=== PATIENT | male | born 1955 | race Caucasian/White ===

== ENCOUNTER → 2016-11-11 | Outpatient (CLI) | payer BC ==
[2016-11-11 18:07] LABS: BLOOD UREA NITROGEN 14 mg/dl (7-18); BUN/CREATININE RATIO 16.7 (10-20); CALCIUM 8.8 mg/dl (8.5-10.1); CARBON DIOXIDE 29 mmol/L (21-32); CHLORIDE 105 mmol/L (98-107); CREATININE 0.85 mg/dl (0.60-1.40); GLUCOSE 119 mg/dl (70-99); POTASSIUM 4.2 mmol/L (3.5-5.1); SODIUM 140 mmol/L (136-145)
== END | disposition home or self-care (01) ==
LOC: C.LABMFLN 16:19
PROVIDERS: ATTEND Family Medicine
DX: I10 Essential (primary) hypertension (principal)

== ENCOUNTER 2018-09-06 05:20 | Inpatient (IN) ==
--- NOTE | 2018-08-24 09:23 | Anesthesiology Consultation ---
Date of Service August 24, 2018 Assessment & Plan (1) Encounter for pre-operative examination: Plan: CHECK BSG AM DOS Chart Review Chart Review: Acceptable Risk for Surgery and Patient seen in Pre Admission Testing Teaching & Discussion Instructed NPO after midnight before surgery, except medications with 15 cc of water. Medication instructions provided according to the PAT guidelines. History Surgery Operation Date: 09/06/18 07:35 Proposed Procedures p Robotic Laparoscopic Prostatectomy - Aurelio Caban MD Height/Weight Height: 5 ft 7 in Weight: 92.4 kg Allergies Allergy/AdvReac Type Severity Reaction Status Date / Time bacitracin Allergy Intermediate Verified 08/21/18 15:03 [From Neosporin ([id number])] neomycin Allergy Unknown Verified 08/21/18 15:03 [From Neosporin ([id number])] polymyxin B Allergy Unknown Verified 08/21/18 15:03 [From Neosporin ([id number])] Medications Home Medications Medication Instructions Recorded Confirmed Last Taken lisinopril 20 1 tab PO QAM 08/15/18 08/21/18 Unknown mg-hydrochlorothiazide 12.5 mg tablet metformin 500 mg tablet 500 mg PO QPM 08/15/18 08/21/18 Unknown omeprazole 20 mg tablet,delayed 20 mg PO DAILY 08/15/18 08/21/18 Unknown release Past Medical History Medical History Allergic rhinitis (Acute) Asthma (Acute) NO INHALERS. HAS ESSENTIALLY RESOLVED SINCE SMOKING CESSATION. Benign essential hypertension (Acute) Elevated PSA, greater than or equal to 20 ng/ml (Acute) Gastro-esophageal reflux (Acute) Hypercholesterolemia (Acute) Prostate cancer (Acute) Testicular hypofunction (Acute) Diabetes mellitus, type 2 Obesity Past Family History Family History Father Diabetes 1.5, managed as type 1 diverticulitis Mother Cancer of kidney FH: kidney cancer Brother Diabetes 1.5, managed as type 1 Grandfather (Paternal) , great grandfather also had diabetes Lymph node cancer Past Surgical History Surgical History History of tonsillectomy and adenoidectomy (Resolved) H/O oral surgery Two implants placed History of colonoscopy History of tonsillectomy and adenoidectomy Past Anesthesia History No Hx of Anesthesia Complications and No Family Hx of Anesthesia Complications History of PONV No Motion Sickness Screening History of Motion Sickness: No Social History Smoking Status: Former smoker tobacco type: cigarettes Do You Dip or Chew Tobacco: Yes (1 CAN/2 DAYS (ADVISED)) Smoking End Date: JANUARY 2016 Hx Alcohol Use: Yes Alcohol type: beer alcohol intake frequency: 0-2 drinks per day (2 12 oz bottles of beer per evening) Hx Substance Use: No substance use type: does not use Exercise / Class Metabolic Activity II 4-5 Yardwork/Stairs/Walk up hill (no CP or SOB with 1 FOS) Review of Systems Pt denies any recent chest pain, shortness of breath, palpitations, cough, fever or URI. +chronic post nasal drip/reflexive cough Physical Exam Vital Signs BP: 115/83 P: 95bpm SPO2: 95% RA T: 97.9 F R: 16 ENMT Mouth: + dental restorations (2 implants, molars, bottom L and R); no chipped teeth and no loose teeth Thyromental Distance: < 3.5 Finger Breadths (3) Mallampati Class: II Neck normal visual inspection and + short neck; neck extension not limited Respiratory normal respiratory effort Auscultation: lungs clear to auscultation bilaterally Cardiovascular Rate/Rhythm: regular rate and regular rhythm Heart Sounds: no murmur Vessels: no carotid bruit Extremities: no edema Testing Electrocardiogram Date: 08/24/18 Findings: + NSR @ (87) Chest X-Ray Date: 08/24/18 1. No acute process within the chest. 2. 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 Laboratory Results 08/24/18 09:37 08/24/18 09:37 Blood Type O Positive 08/24/18 09:37 Antibody Screen NEGATIVE 08/24/18 09:37 Urine Color Yellow 08/24/18 09:37 Urine Appearance Clear (Clear) 08/24/18 09:37 Urine pH 5.5 (4.5-7.5) 08/24/18 09:37 Ur Specific [place] 1.014 (1.000-1.030) 08/24/18 09:37 Urine Protein Negative (Negative) 08/24/18 09:37 Urine Glucose (UA) Negative (Negative) 08/24/18 09:37 Urine Ketones Negative (Negative) 08/24/18 09:37 Urine Nitrite Negative (Negative) 08/24/18 09:37 Ur Leukocyte Esterase Negative (Negative) 08/24/18 09:37 08/24/18 09:37 Urine Culture - Final Urine,Clean Catch No growth - less than 1,000 colonies/mL.
--- NOTE | 2018-08-24 09:32 | PAT Medication Instructions ---
Medication Instructions Date of Service August 24, 2018 Home Medications lisinopril 20mg-hydrochlorothiazide 12.5 mg 1 tab PO QAM metformin 500 mg tablet 500 mg PO QPM omeprazole 20 mg tablet 20 mg PO QAM DO NOT take the morning of surgery lisinopril 20mg-hydrochlorothiazide 12.5 mg 1 tab PO QAM Take morning of surgery With a small sip of water, OTHERWISE NOTHING TO EAT OR DRINK AFTER MIDNIGHT: omeprazole 20 mg tablet 20 mg PO QAM Take evening before surgery metformin 500 mg tablet 500 mg PO QPM Other Notes If you have any questions please call us at [phone] or [phone] or [phone] or [phone]
--- NOTE | 2018-08-24 09:59 | XRay Report ---
XR chest Pre-admission PA/Lat HISTORY: Preop. COMPARISON: Abdomen and pelvis CT 07/25/2018. FINDINGS: Lobular right retrocardiac density likely corresponds to the paraesophageal cyst seen on th e prior study. No pneumothorax no pleural effusions. Lobular density overlying the right posterior ni nth rib favors a healing/healed fracture. The lungs are otherwise clear. The heart is normal in size. IMPRESSION: 1. No acute process within the chest. 2. 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 Electronically signed by: Aaron Yarbrough M.D. 08/24/2018 9:58 AM
[2018-08-24 10:31] LABS: Basophils # (auto) 0.04 K/uL (0-0.2); Basophils % (auto) 0.4 %; Eosinophils # (auto) 0.53 K/uL (0-0.5); Eosinophils % (auto) 5.3 %; Hematocrit (blood only) 45.4 % (42-52); Hemoglobin 14.9 g/dL (14.0-18.0); Immature Granulocytes # (auto) 0.02 K/uL (0.00-0.02); Immature Granulocytes % (auto) 0.2 %; Lymphocytes # (auto) 2.37 K/uL (1.2-3.4); Lymphocytes % (auto) 23.7 %; Mean Corpuscular Hgb Conc 32.8 g/dL (32-36); Mean Corpuscular Volume 91.2 fL (80-100); Mean Platelet Volume 9.3 fL (7.4-10.4); Monocytes # (auto) 1.26 K/uL (0.11-0.59); Monocytes % (auto) 12.6 %; Neutrophils # (auto) 5.77 K/uL (1.4-6.5); Neutrophils % (auto) 57.8 %; Platelet Count 364 K/uL (130-400); RDW Coefficient of Variation 13.1 % (11.5-14.5); RDW Standard Deviation 43.2 fL (36.4-46.3); Red Blood Count 4.98 M/uL (4.7-6.1); White Blood Count 9.99 K/uL (4.8-10.8)
[2018-08-24 10:34] LABS: Appearance Urine Clear (Clear); Bilirubin Urine Negative (Negative); Color Urine Yellow; Glucose Urine UA Negative (Negative); Ketones Urine Negative (Negative); Leukocyte Esterase Urine Negative (Negative); Nitrite Urine Negative (Negative); Protein Urine Negative (Negative); Specific Gravity Urine 1.014 (1.000-1.030); Urobilinogen Urine Negative (Negative); pH Urine 5.5 (4.5-7.5)
[2018-08-24 10:40] LABS: BUN Creatinine Ratio 18.1 (10-20); Calcium 9.3 mg/dl (8.5-10.1); Creatinine Clr Calc Pharmacy 96.7 ml/min; Est GFR (African American) 108.2; Est GFR (Non-African American) 93.4; Potassium 4.3 mmol/L (3.5-5.1)
[2018-09-06] MEDS ORDERED: HEPARIN IV BOLUS 5,000 UNITS in SYRINGE 0 ML IV ONE (06:00)
[2018-09-06] MEDS ORDERED: LR 15ML/HR IV SCH ×2 (06:00)
[2018-09-06] MEDS ORDERED: LR 500ML BOLUS, THEN 15ML/HR IV SCH (06:00)
[2018-09-06] MEDS ORDERED: LR 500ML BOLUS IV SCH (06:00)
[2018-09-06] MEDS ORDERED: HEPARIN SOD 5,000 UNIT/0.5 ML VIAL SQ SCH (06:00)
[2018-09-06] MEDS ORDERED: CEFAZOLIN 2000MG 2,000 MG/15 ML SYR IV SCH (06:00)
[2018-09-06] MEDS ORDERED: ACETAMINOPHEN 1,000 MG/100 ML VIAL IV SCH (06:00)
[2018-09-06] MEDS ORDERED: BUPIVACAINE 0.5 % 5 MG/1 ML MPF 30ML VIAL ONE (07:01)
--- NOTE | 2018-09-06 07:02 | History & Physical Bridge Note ---
Date of Service September 06, 2018 History & Physical Bridge Note I have examined the patient, reviewed the History & Physical and in the interval since the performance of the History & Physical I have noted the following changes of clinical significance: no changes noted
[2018-09-06] MEDS ORDERED: LIDOCAINE HCL 2% 2 ML VIAL/AMP(20MG/ML) INFIL ONE (07:10)
[2018-09-06] MEDS ORDERED: PROPOFOL IV EMULSION 10 MG/ML 20 ML VIAL IV ONE (07:10)
[2018-09-06] MEDS ORDERED: LARYING-O-JET KIT (LTA) ONE (07:10)
[2018-09-06] MEDS ORDERED: MIDAZOLAM HCL 1 MG/ML 2ML VIAL ONE (07:11)
[2018-09-06] MEDS ORDERED: fentaNYL citrate 100 MCG/2 ML VIAL ONE ×2 (07:11→12:16)
[2018-09-06] MEDS ORDERED: ROCURONIUM BROMIDE 10 MG/ML 5 ML VIAL ONE ×6 (07:12→11:31)
[2018-09-06] MEDS ORDERED: ONDANSETRON INJ 2 MG/ML 2 ML VIAL ONE ×2 (07:12→12:38)
[2018-09-06] MEDS ORDERED: DEXAMETHASONE SOD INJ 4 MG/ML VIAL ONE ×2 (07:12→09:48)
[2018-09-06] MEDS ORDERED: KETOROLAC 30 MG/ML VIAL IV PRN (07:40)
[2018-09-06] MEDS ORDERED: DEXAMETHASONE SOD INJ 4 MG/ML VIAL IV PRN (07:40)
[2018-09-06] MEDS ORDERED: ATROPINE SULFATE 0.1 MG/ML 10ML SYR IV PRN (07:40)
[2018-09-06] MEDS ORDERED: ePHEDrine sulfate 50 MG/ML AMP IV PRN (07:40)
[2018-09-06] MEDS ORDERED: ONDANSETRON INJ 2 MG/ML 2 ML VIAL IV PRN ×2 (07:40→15:08)
[2018-09-06] MEDS ORDERED: HYDROmorphone INJ 2 MG/ML SYR/VIAL IV PRN (07:40)
[2018-09-06] MEDS ORDERED: HYDROmorphone INJ 2 MG/ML SYR/VIAL ONE (08:58)
[2018-09-06] MEDS ORDERED: METHYLENE BLUE 0.5% 10 ML VIAL ONE ×2 (10:20)
[2018-09-06] MEDS ORDERED: NEOSTIGMINE METHYLSULFATE 5 MG/5 ML SYR ONE (10:35)
[2018-09-06] MEDS ORDERED: GLYCOPYRROLATE 0.2 MG/ML VIAL ONE (10:35)
[2018-09-06] MEDS ORDERED: SURGICEL ABSORB HEMOSTAT 2IN X 14IN TOP ONE (10:38)
[2018-09-06] MEDS ORDERED: FLOSEAL HEMOSTATIC MATRIX 10ML TOP ONE (10:38)
--- NOTE | 2018-09-06 13:32 | Operative Report ---
Post Operative Report Pre & Post Diagnosis Operation Date: 09/06/18 07:40 Pre-Op Diagnosis: Prostate Cancer Post-Op Diagnosis: Prostate Cancer Procedure Operation Date: 09/06/18 07:40 Actual Procedures p Robotic Assisted Laparoscopic Prostatectomy, Bilateral Pelvic Lymph Node Dissection and Suprapubic Catheter Tube Placement(Not Applicable) - Aurelio Caban MD Surgeon Aurelio Caban MD [employer] Jaden Linda CRNP Estimated Blood Loss 100 Findings Consistent with Post-Op Diagnosis Specimens Prostate + SVs, periprostatic fat, median lobe, L and R pelvic nodes Description of Procedure RALRP, BPLND, SPT placement I attest to the content of the Intraoperative Record and any orders documented therein. Any exceptions are noted below.
[2018-09-06] MEDS: fentaNYL citrate 100 MCG/2 ML VIAL IV PRN ×2 (13:50→13:55)
[2018-09-06 14:09] LABS: Basophils # (auto) 0.02 K/uL (0-0.2); Basophils % (auto) 0.1 %; Eosinophils # (auto) 0.02 K/uL (0-0.5); Eosinophils % (auto) 0.1 %; Hematocrit (blood only) 43.7 % (42-52); Hemoglobin 14.5 g/dL (14.0-18.0); Immature Granulocytes # (auto) 0.04 K/uL (0.00-0.02); Immature Granulocytes % (auto) 0.3 %; Lymphocytes # (auto) 0.79 K/uL (1.2-3.4); Lymphocytes % (auto) 5.3 %; Mean Corpuscular Volume 91.8 fL (80-100); Mean Platelet Volume 8.8 fL (7.4-10.4); Monocytes # (auto) 0.55 K/uL (0.11-0.59); Monocytes % (auto) 3.7 %; Neutrophils # (auto) 13.47 K/uL (1.4-6.5); Neutrophils % (auto) 90.5 %; Platelet Count 350 K/uL (130-400); RDW Coefficient of Variation 12.9 % (11.5-14.5); RDW Standard Deviation 43.3 fL (36.4-46.3); Red Blood Count 4.76 M/uL (4.7-6.1); White Blood Count 14.89 K/uL (4.8-10.8)
[2018-09-06 14:13] LABS: Mean Corpuscular Hgb Conc 33.2 g/dL (32-36)
[2018-09-06 14:36] LABS: Est GFR (African American) 84.1; Potassium 3.8 mmol/L (3.5-5.1)
[2018-09-06 14:37] LABS: BUN Creatinine Ratio 14.9 (10-20); Calcium 8.3 mg/dl (8.5-10.1); Creatinine Clr Calc Pharmacy 77.2 ml/min; Est GFR (Non-African American) 72.6
--- NOTE | 2018-09-06 14:57 | Anesthesiology Progress Note ---
Date of Service September 06, 2018 Anesthesia Post Procedure Vital Signs Vital Signs: Temp Pulse Pulse Resp BP BP Pulse Ox 09/06/18 14:45 107 H 16 113/82 93 09/06/18 14:35 105 H 16 118/86 93 09/06/18 14:25 36.3 C L 101 H 13 117/84 96 09/06/18 14:15 105 H 17 128/92 94 09/06/18 14:05 106 H 20 129/93 98 09/06/18 13:55 110 H 14 114/66 100 09/06/18 13:46 36.0 C L 113 H 13 103/80 100 09/06/18 05:49 36.8 C 103 H 20 125/96 95 Pain Intensity Abdomen: Pain Intensity: 5 Notes Mental Status: alert / awake / arousable and participated in evaluation Patient Amnestic to Procedure: Yes Nausea / Vomiting: adequately controlled Pain: adequately controlled Airway Patency, RR, SpO2: stable & adequate BP & HR: stable & adequate Hydration State: stable & adequate Anesthetic Complications: no major complications apparent
[2018-09-06] MEDS ORDERED: OXYCODONE HCL IR 5 MG TAB (IMMEDIATE RELEASE) PO PRN ×2 (15:08)
[2018-09-06] MEDS ORDERED: MoRPHine SULFATE 4 MG/ML 1 ML CARP\\VIAL IV PRN (15:08)
[2018-09-06] MEDS ORDERED: PHARMACY GLYCEMIC MGMT CONSULT PRN (15:19)
[2018-09-06] MEDS ORDERED: GLUCOSE 10 TABS/TUBE PO PRN (15:30)
[2018-09-06] MEDS ORDERED: DEXTROSE 50% 50 ML SYRINGE IV PRN (15:30)
[2018-09-06] MEDS ORDERED: GLUCAGON FOR INJ 1 MG VIAL SQ PRN (15:30)
[2018-09-06] MEDS ORDERED: GLUCOSE 40% GEL 15 GM TUBE PO PRN (15:30)
[2018-09-06] MEDS ORDERED: CARBOHYDRATES FOR HYPOGLYCEMIA PO PRN (15:30)
[2018-09-06] MEDS ORDERED: INSULIN GLARGINE SOLOSTAR 100 UNITS/ML 3 ML PEN SC ONE ×2 (15:45→21:00)
--- NOTE | 2018-09-06 15:46 | Pharmacy Report ---
Pharmacy Glycemic Short Note 2 - Date of Service September 06, 2018 - Glycemic Short BSG Results (Last 24 hours): 09/06/18 09/06/18 09/06/18 05:45 13:50 13:59 Glucose 209 H POC Glucose 134 H 179 H OUTPATIENT ANTIDIABETIC REGIMEN: * metformin 500 mg PO qPM * A1c 6.9 % 05/11/18 ASSESSMENT: * Mr. Delaney is a 62 yr old T2DM male s/p p Laparoscopic Prostatectomy, Bilateral Pelvic Lymph Node Dissection and Suprapubic Catheter Tube placement. He is well controlled on metformin as an outpatient based on recent A1c of 6.9% . Updated A1c ordered for tomorrow. * He was given oral and intravenous dexamethasone in the OR, therefore aggressive bolus insulin will likely be needed for the next 24 hours. * I have ordered a stat dose of Lantus 18 units for current BSG > 200 mg/dL and will add a Lantus scale at HS. I dosed Lantus on the conservative side since patient is ordered a clear liquid diet. * Novolog parameters will be based on weight/stress 3 for POD #0 PLAN FOR INPATIENT GLYCEMIC CONTROL: * Hold outpatient oral diabetes medications * Basal insulin * Lantus 18 units SQ now, then per scale at HS: * 0 units for BSG < 140 mg/dL * 8 units for BSG 140-200 mg/dL * 14 units for BSG > 200 mg/dL * Bolus insulin * NovoLog per scale ACHS or Q6hrs while NPO * Goal Range: Low 110 mg/dL - High 140 mg/dL * Correction Factor: 15 mg/dL/unit * Nutritional / Prandial insulin per carb ratio of 1 unit per 6 grams CHO consumed * Overnight checks at 00 and 04 for POD #0 thank you
[2018-09-06 17:02] LABS: Prothrombin Time 10.2 Seconds (9.0-12.0)
[2018-09-06] MEDS: CEFAZOLIN 2000MG 2,000 MG/15 ML SYR IV SCH ×2 (17:06→23:55)
[2018-09-06] MEDS: FAMOTIDINE 20 MG in SYRINGE 3 ML IV SCH (17:13)
[2018-09-06] MEDS: ACETAMINOPHEN 1,000 MG/100 ML VIAL IV SCH ×2 (17:22→23:58)
--- NOTE | 2018-09-06 17:43 | Progress Note ---
Date of Service September 06, 2018 Patient seen in PM rounds. Taking clears, somnolent. C/o rodriguez irritation. NAD S1 S2 Good respiratory excursion Inc c/d/i, nondistended, Nt Labs below. A/P 62 yo male postop RALRP, BPLND, SPT placement Intraop findings reviewed. Rx for oxybutynin for bladder spasms. Clears, OOBTC as maryan Laboratory Results - last 24 hr 09/06/18 09/06/18 09/06/18 05:45 13:50 13:59 WBC 14.89 H RBC 4.76 Hgb 14.5 Hct 43.7 MCV 91.8 MCH 30.5 MCHC 33.2 RDW Std Deviation 43.3 RDW Coeff of Natalia 12.9 Plt Count 350 MPV 8.8 Immature Gran % (Auto) 0.3 Neut % (Auto) 90.5 Lymph % (Auto) 5.3 [place] % (Auto) 3.7 Eos % (Auto) 0.1 Baso % (Auto) 0.1 Immature Gran # (Auto) 0.04 H Neut # (Auto) 13.47 H Lymph # (Auto) 0.79 L [place] # (Auto) 0.55 Eos # (Auto) 0.02 Baso # (Auto) 0.02 PT INR Sodium Potassium Chloride Carbon Dioxide Anion Gap BUN Creatinine Est Cr Clr Drug Dosing Est GFR ( Amer) Est GFR (Non-Af Amer) BUN/Creatinine Ratio Glucose POC Glucose 134 H 179 H Calcium 09/06/18 09/06/18 13:59 16:36 WBC RBC Hgb Hct MCV MCH MCHC RDW Std Deviation RDW Coeff of Natalia Plt Count MPV Immature Gran % (Auto) Neut % (Auto) Lymph % (Auto) [place] % (Auto) Eos % (Auto) Baso % (Auto) Immature Gran # (Auto) Neut # (Auto) Lymph # (Auto) [place] # (Auto) Eos # (Auto) Baso # (Auto) PT 10.2 INR 1.0 Sodium 137 Potassium 3.8 Chloride 103 Carbon Dioxide 27 Anion Gap 8.0 BUN 16 Creatinine 1.10 Est Cr Clr Drug Dosing 77.2 Est GFR ( Amer) 84.1 Est GFR (Non-Af Amer) 72.6 BUN/Creatinine Ratio 14.9 Glucose 209 H POC Glucose Calcium 8.3 L Physical Exam 2 Vital Signs (Past 24 Hours): Last Vital Signs Temp 37.2 C 09/06/18 17:00 Pulse 108 H 09/06/18 17:00 Resp 18 09/06/18 17:00 BP 113/80 09/06/18 17:00 Pulse Ox 96 09/06/18 17:00
[2018-09-06] MEDS: LACTATED RINGER'S 1,000 ML IV SCH (18:16)
[2018-09-06] MEDS: OXYBUTYNIN CHLORIDE 5 MG TAB PO PRN (18:31)
[2018-09-06] MEDS: INSULIN ASPART 100 UNITS/ML 3 ML PEN SC SCH ×2 (18:36→22:01)
--- NOTE | 2018-09-06 19:33 | Operative Report ---
DATE OF OPERATION: 09/06/2018 PREOPERATIVE DIAGNOSIS: Mchenry 3+4 adenocarcinoma of the prostate with a preoperative PSA of 51. POSTOPERATIVE DIAGNOSIS: Jaycee 3+4 adenocarcinoma of the prostate with a preoperative PSA of 51. . PROCEDURE: Robotic-assisted laparoscopic radical retropubic prostatectomy, right-sided nerve sparing and left-sided partial nerve sparing dissection, bilateral pelvic lymph node dissection and suprapubic catheter placement. SURGEON: Aurelio Caban MD. COUNTER HELPER: JEFFERSON Og and JEFFERSON Schilling. ANESTHESIA: General anesthesia with endotracheal intubation plus local at port sites. ESTIMATED BLOOD LOSS: 100 mL INTRAVENOUS FLUIDS: 1900 mL of crystalloid. SPECIMENS SENT TO PATHOLOGY: Periprosthetic fat, median lobe, left pelvic lymph nodes right pelvic lymph nodes, prostate and seminal vesicles. DRAINS LEFT IN PLACE: Include a #10 INEZ drain in left lower quadrant, #18-Swedish silicone Cline catheter per urethra with 10 mL of sterile water in the balloon and a #16-Swedish suprapubic tube with 10 mL of sterile water in the balloon. COMPLICATIONS: None. FINDINGS: Watertight anastomosis, periprostatic inflammation, and redundant seminal vesicles. BRIEF HISTORY: Mr. Delaney is a pleasant 62-year-old male who is status post prostate biopsy for an elevated PSA of 51. The staging studies were negative for obvious metastatic disease. He is found to have Mchenry 3+4 elements all along the left hand of his prostate gland. After discussion of risks and benefits of various forms of management, he has decided upon a robotic prostatectomy to manage his disease. Please see H and P for further details. The patient understands that there is a discrepancy between his PSA value, imaging studies, and biopsy pathology. Hopefully, a final pathology report after surgery and tita PSA will help elucidate this problem. Intravenous Tylenol is provided for antibiotic coverage and SCDs used for DVT prophylaxis. Intravenous cephalosporins provided for antibiotic coverage. DESCRIPTION OF PROCEDURE: The patient was properly identified and brought into the operative suite after identification of appropriate consent on the chart. General anesthesia with endotracheal intubation was initiated. The patient was prepped and draped in standard fashion for this procedure. part time receptionist-out procedure was followed. A Cline catheter was placed with some resistance and drainage of clear yellow urine. All port sites were anesthetized with local prior to incision. A 12-mm supraumbilical incision was made and using a 12-mm 0 degree laparoscope and visual obturator, abdomen was entered under direct visualization. Abdomen was insufflated to 15 mmHg and noted to be free of any injuries on placement of the ports. Ports were placed for a 4th arm robotic template including 2 left-sided 7-mm robotic ports, 1 right-sided 7-mm robotic port and a 5 and 12 mm transport assistant port. The patient was placed in Trendelenburg and robot was brought in and docked. Some copious colonic adhesions were freed on the left pelvis and some small bowel adhesions of the right side were also noted and partially freed. The patient was noted to have a large indirect hernia on the right hand side, which was circumscribed. Inguinal musculature weakness on the right was also noted. A hook cautery was used to drop the bladder down to the level of the pubic bone. The patient was noted to have a fairly copious amount of intra-abdominal fat. Prostate was defatted and the tissue was sent for pathologic analysis. Endopelvic fascia was sharply entered on both sides and dissected free down to the level of the apex of the prostate. Dorsal venous complex was skeletonized and then controlled using 0 Vicryl suture on a CT1 needle. Attention was then turned to a partial nerve sparing dissection, which was commenced on the right hand side, which was free of pathology biopsy. A 30-degree down lens was placed and the fourth arm was used to place the bladder neck on traction. This was dissected down to the level of the catheter and on entering the bladder. The catheter was delivered through the incision and used for anterior traction on the bladder and prostate. Bladder was inspected and the patient was noted to have a pedunculated median lobe element present within the bladder. A plane of dissection of the posterior bladder wall dissection was altered to include the median lobe. Unfortunately, due to its relatively pedunculated nature, this was amputated with manipulation. This was sent for separate pathologic analysis. After this was complete and using the lateral aspects of the dissection to assist in identification of appropriate tissue planes, the bladder was able to be dropped in the midline down to the level of the vas deferens and seminal vesicles in the midline. These were noted to be dilated and somewhat inflammatory in terms of their anatomy. Weck clips were used to control the prostatic pedicles on both sides and cold scissors were used to divide the right-sided pedicle. Once the vasculature had been bypassed, the meticulous nerve sparing dissection was carried out on the right hand side up to the level of the apex of the prostate. On the left hand side, a wider dissection plane was taken with the use of a pinpoint Bovie cautery where necessary. The remaining attachments to the vas deferens and seminal vesicles were freed in the midline and the rectum was dropped down to the level of the apex of the prostate. No evidence of any rectal injury was appreciated throughout the case. Attention was then turned to the dorsal venous complex, which was divided using hot scissors. Urethra was skeletonized and then divided. Rectourethralis fibers remaining apical prosthetic attachments were divided and the prostate was delivered up into the abdomen, where it was placed within an EndoCatch bag for retrieval at the end of the case. Inspection was turned to the pelvis where excellent hemostasis was appreciated. Rectum was insufflated under saline irrigation with no evidence of any rectal injury. The patient's bladder neck was inspected and noted to be thickened, likely due to the patient's median lobe element. Although the patient's bladder neck was somewhat irregular on initial dissection its confines were able to be well defined and ureteral orifices were appreciated to be well removed from the area of dissection. No bladder neck reconstruction was felt to be necessary at this time. Attention was then turned to the obturator pelvic lymph node dissection, which was carried out on both sides. The external iliac vein, pelvic sidewall and obturator nerve were used as the landmarks for dissection. Weck clips and monopolar cautery were used to control prominent lymphatic vessels and small blood vessels as needed. Care was taken to avoid any injury to the nerve for the blood vessels, which were noted to be intact both sides at the end of the case with excellent hemostasis. The left-sided pelvic lymph node packet was marked using a Weck clip and these were placed within a second EndoCatch bag for retrieval at the end of the case. FloSeal tissue sealant was placed over the prostatic bed for additional hemostasis. A Cline catheter was then placed per urethra using a double-armed V-Loc suture, a circumferential running anastomosis was performed. Care was taken to avoid any deep suture throws in the vicinity of the ureteral orifices due to the previously noted median lobe element. After this was complete, the Cline catheter was visualized entering the bladder and 10 mL of sterile water were placed within the balloon. This was tested to greater than 180 mL of sterile irrigant with a watertight anastomosis being noted. Attention was then turned to placement of the suprapubic tube for additional postoperative comfort. A small suprapubic incision was made and a transdermal suprapubic needle passage was directly visualized entering the bladder. Unfortunately, there is some traction of the bladder. A small tear in the anterior bladder neck was appreciated. This was noted and identified. It was easily able to be oversewn and reapproximated using a separate V-Loc suture. Anastomosis was again tested and noted to be watertight in excellent condition. I was therefore felt to be safe to proceed with the placement of the suprapubic tube as planned. This was able to be placed without difficulties or complications. Ten mL of sterile water were placed within a #16-Swedish silicone Cline catheter which was passed via the suprapubic catheter tract. These were able to be irrigated with isovolumic return from the other catheter. Fourth arm was removed and #10 INEZ drain was brought in via the fourth arm port. This was placed within the pelvis while avoiding placing it directly over the anastomosis. Robotic instruments were removed and robot was dedocked. Strings to the EndoCatch bag were brought up through the supraumbilical incision, which was then enlarged sufficiently to allow for easy removal of the specimen bags. Drains including the a INEZ drain and suprapubic tube were secured in place using 2-0 silk suture. The fascia was closed at the level of the superior midline incision using an 0 Vicryl suture on a UR-5 needle. A 3-0 Vicryl was used at the level of the subcutaneous tissues. 4-0 Monocryl and Dermabond were used for skin incision closure. Excess carbon dioxide gas was removed from the abdomen prior to completion of closures. Dermabond dressings were placed and anesthesia was reversed. The patient was transferred to the recovery room in stable condition. FOLLOWUP CARE: The patient will be admitted to the floor for standard postoperative management. Assistants were present throughout the case for instrument passage, management of the camera, retraction of tissue and anatomy, passage of suture and bagging of specimens, and general patient safety. I attest to the content of the Intraoperative Record and any orders documented therein. Any exceptions are noted below. DIANE
[2018-09-06] MEDS: HEPARIN SOD 5,000 UNIT/0.5 ML VIAL SQ SCH (20:05)
[2018-09-06] MEDS: DOCUSATE SODIUM 100 MG CAP PO SCH (20:05)
[2018-09-07] MEDS: INSULIN ASPART 100 UNITS/ML 3 ML PEN SC SCH ×4 (00:05→13:26)
[2018-09-07] MEDS: OXYBUTYNIN CHLORIDE 5 MG TAB PO PRN (05:11)
[2018-09-07] MEDS: FAMOTIDINE 20 MG in SYRINGE 3 ML IV SCH (05:41)
[2018-09-07] MEDS: LACTATED RINGER'S 1,000 ML IV SCH (07:04)
[2018-09-07 07:24] LABS: Basophils # (auto) 0.01 K/uL (0-0.2); Basophils % (auto) 0.1 %; Eosinophils # (auto) 0.02 K/uL (0-0.5); Eosinophils % (auto) 0.1 %; Hemoglobin 13.3 g/dL (14.0-18.0); Immature Granulocytes # (auto) 0.04 K/uL (0.00-0.02); Immature Granulocytes % (auto) 0.2 %; Lymphocytes % (auto) 11.9 %; Mean Corpuscular Hgb Conc 32.4 g/dL (32-36); Mean Corpuscular Volume 92.3 fL (80-100); Monocytes # (auto) 2.14 K/uL (0.11-0.59); Monocytes % (auto) 13.4 %; Neutrophils # (auto) 11.91 K/uL (1.4-6.5); Neutrophils % (auto) 74.3 %; Platelet Count 366 K/uL (130-400); RDW Coefficient of Variation 13.2 % (11.5-14.5); RDW Standard Deviation 44.7 fL (36.4-46.3); Red Blood Count 4.44 M/uL (4.7-6.1); White Blood Count 16.02 K/uL (4.8-10.8)
[2018-09-07] MEDS: ACETAMINOPHEN 1,000 MG/100 ML VIAL IV SCH ×2 (07:42→15:43)
[2018-09-07 07:50] LABS: BUN Creatinine Ratio 15.3 (10-20); Calcium 8.3 mg/dl (8.5-10.1); Est GFR (African American) 109.8; Est GFR (Non-African American) 94.7; Potassium 3.8 mmol/L (3.5-5.1)
[2018-09-07] MEDS: CEFAZOLIN 2000MG 2,000 MG/15 ML SYR IV SCH (08:04)
--- NOTE | 2018-09-07 08:23 | Anesthesiology Progress Note ---
Date of Service September 07, 2018 Anesthesia Post Procedure Vital Signs Vital Signs: Temp Pulse Pulse Pulse Pulse Resp BP 09/07/18 07:15 36.8 C 95 H 17 118/75 09/07/18 03:39 37 C 102 H 18 122/77 09/06/18 23:44 37.3 C 108 H 20 129/87 09/06/18 19:44 36.8 C 108 H 18 116/77 09/06/18 17:57 37.0 C 112 H 18 109/70 09/06/18 17:00 37.2 C 108 H 18 113/80 09/06/18 16:00 36.8 C 104 H 18 106/71 09/06/18 15:30 36.9 C 106 H 16 117/77 09/06/18 15:00 36.4 C L 103 H 14 111/73 09/06/18 14:45 107 H 16 113/82 09/06/18 14:35 105 H 16 118/86 09/06/18 14:25 36.3 C L 101 H 13 117/84 09/06/18 14:15 105 H 17 128/92 09/06/18 14:05 106 H 20 129/93 09/06/18 13:55 110 H 14 114/66 09/06/18 13:46 36.0 C L 113 H 13 103/80 Pulse Ox Pulse Ox 09/07/18 07:15 96 09/07/18 03:39 95 09/06/18 23:44 96 09/06/18 19:44 96 09/06/18 17:57 96 09/06/18 17:00 96 09/06/18 16:00 100 09/06/18 15:30 98 98 09/06/18 15:00 93 09/06/18 14:45 93 09/06/18 14:35 93 09/06/18 14:25 96 09/06/18 14:15 94 09/06/18 14:05 98 09/06/18 13:55 100 09/06/18 13:46 100 Pain Intensity Abdomen: Pain Intensity: 6 Notes Mental Status: alert / awake / arousable Patient Amnestic to Procedure: Yes Nausea / Vomiting: adequately controlled Pain: adequately controlled Airway Patency, RR, SpO2: stable & adequate BP & HR: stable & adequate Hydration State: stable & adequate Anesthetic Complications: no major complications apparent
[2018-09-07] MEDS: DOCUSATE SODIUM 100 MG CAP PO SCH (08:45)
--- NOTE | 2018-09-07 08:58 | Urology Progress Note ---
Date of Service September 07, 2018 Assessment & Plan (1) Prostate CA: POD #1 s/p radical prostatectomy, bilateral lymph node dissection and SP tube placement. Doing very well today, with an uneventful night. Progressing as expected. Ambulating in the halls, tolerating PO diet and pain controlled. Labs good today, INEZ with minimal output. Rodriguez catheter draining clear, yellow. Plan to d/c urethral rodriguez catheter, maintain SP tube. D/C IVF Advance diet to mechanical soft Continue to ambulate in halls Likely will discharge home after lunch if tolerating well. Plan to d/c INEZ just prior to discharge Subjective 62yo M POD #1 s/p radical prostatectomy, lymph node dissection and SP tube placement. Patient doing well today, sitting up in bed. Uneventful night. Having some abdominal pain, sensation of foot falling asleep but improved with repositioning. Pain controlled with PO options. Tolerating clear liquid tray well. Denies nausea/vomiting. Denies chest pain or shortness of breath Review of Systems All systems reviewed & are unremarkable except as noted in HPI & below Physical Exam 2 Vital Signs (Past 24 Hours): Last Vital Signs Temp 36.8 C 09/07/18 07:15 Pulse 95 H 09/07/18 07:15 Resp 17 09/07/18 07:15 BP 118/75 09/07/18 07:15 Pulse Ox 96 09/07/18 07:15 Physical Exam: A&O x3 RRR abd soft, slightly tender near incisions as expected INEZ drain with scant serosang output. Rodriguez and SP tube catheter draining clear yellow. Incisions intact, minimal ecchymosis. no bleeding, discharge or other concerning features.
[2018-09-07] MEDS ORDERED: LISINOPRIL/HCTZ 20/12.5MG 1 TAB TAB PO SCH (09:00)
[2018-09-07] MEDS ORDERED: PANTOprazole 40 MG TAB PO SCH (09:00)
[2018-09-07] MEDS: HEPARIN SOD 5,000 UNIT/0.5 ML VIAL SQ SCH (09:31)
[2018-09-07 09:44] LABS: Estimated Average Glucose 148 mg/dl
--- NOTE | 2018-09-07 12:48 | Pharmacy Report ---
Pharmacy Glycemic Short Note 2 - Date of Service September 07, 2018 - Glycemic Short BSG Results (Last 24 hours): 09/06/18 09/06/18 09/06/18 13:50 13:59 18:02 Glucose 209 H POC Glucose 179 H 203 H 09/06/18 09/07/18 09/07/18 20:45 00:04 03:36 Glucose POC Glucose 182 H 122 H 105 H 09/07/18 09/07/18 06:40 08:21 Glucose 109 H POC Glucose 102 H OUTPATIENT ANTIDIABETIC REGIMEN: * metformin 500 mg PO qPM * A1c 6.9 % 05/11/18 & 6.8% on 09/07/18 ASSESSMENT: * Mr. Delaney is a 62 yr old T2DM male s/p p Laparoscopic Prostatectomy, Bilateral Pelvic Lymph Node Dissection and Suprapubic Catheter Tube placement. He is well controlled on metformin as an outpatient based on recent A1cs. No changes needed to outpatient regimen at discharge. * Outpatient metformin has been on hold for admission post-operatively. Pt initially ordered a clear liquid diet and now advanced to regular soft diet. * He was given oral and intravenous dexamethasone in the OR, therefore aggressive bolus insulin was needed for the first 24h-48hrs post-operatively. Will start tapering insulin downwards as steroid's hyperglycemia effects diminish. PLAN FOR INPATIENT GLYCEMIC CONTROL: * Hold outpatient oral diabetes medications * Basal insulin * D/C - no longer needed based on A1c * Bolus insulin: loosen parameters * NovoLog per scale ACHS or Q6hrs while NPO * Goal Range: Low 110 mg/dL - High 140 mg/dL * Correction Factor: 20 mg/dL/unit * Nutritional / Prandial insulin per carb ratio of 1 unit per 7 grams CHO consumed thank you
--- NOTE | 2018-09-07 13:30 | Communication Note ---
Date of Service: September 07, 2018 Tolerated regular diet for breakfast and lunch. Ready for discharge. Okay to d/c INEZ drain. Maintain SP tube.
--- NOTE | 2018-09-12 12:37 | Discharge Summary ---
Date of Service September 12, 2018 Admission HPI Per Admitting Provider Patient with prostate cancer for robotic prostatectomy. Please see H&P for further details. Admission Exam Per Admitting Provider NAD S1 S2 Good respiratory excursion. Abd soft, NT ND Principal Diagnosis Prostate cancer. Discharge Exam Constitutional WD/WN, vitals as above Neck trachea midline; no anterior neck swelling Respiratory normal respiratory effort; no respiratory distress and does not use accessory muscles Cardiovascular Vessels: radial pulses present Gastrointestinal (Abdomen) Percussion/Palpation: + abdomen tender and abdomen soft inc c d i Skin normal turgor Neurologic CN's II-XI intact bilaterally Psychiatric Orientation: oriented x 3 Lymphatic no lymphadenopathy Discharge Data Allergies Allergy/AdvReac Type Severity Reaction Status Date / Time bacitracin Allergy Intermediate Verified 09/06/18 05:43 [From Neosporin ([id number])] neomycin Allergy Unknown Verified 09/06/18 05:43 [From Neosporin ([id number])] polymyxin B Allergy Unknown Verified 09/06/18 05:43 [From Neosporin ([id number])] Procedures Performed Operation Date: 09/06/18 07:40 Actual Procedures p Robotic Assisted Laparoscopic Prostatectomy, Bilateral Pelvic Lymph Node Dissection (Not Applicable) - Aurelio Caban MD s Subrapubic Cystostomy(Not Applicable) - Aurelio Caban MD Hospital Course (1) Prostate CA: Patient admitted after uncomplicated robotic prostatectomy. Please see OP note for further details. Postop diet and activity advanced per routine. Please see progress notes for further details. Patient tolerating regular diet, comfortable on oral meds and ambulatory, considered stable for DC home POD#1. Total Time Total Time Spent Total Time Spent (In Minutes): 10 Discharge Plan Discharge Items Patient Disposition: Home - Self-Care Reason For Visit: PROSTATE CANCER Discharge Diagnosis: prostate cancer Discharge Goals: Diagnostic testing Activity: As commented below Activity Comment: walking in your house and stairs are okay Lifting: No more than 10 pounds Bathing: Keep incision dry Bathing Comment: okay to shower tomorrow, do not pick/scrap surgical glue. no tub bath. Sexual Activity: Wait until after follow-up appointment Exercise/Sports: Rest today and Wait until after follow-up appointment Driving/Machine Use: Resume 1 day after discharge Driving/Machine Use Comment: no drinking alcohol or driving while taking pain medication Non-emergency contact: Urologist Call non-emergency contact if: you have any medication questions, your symptoms worsen, your pain is not controlled, your pain is concerning for you, your temperature is above 101, your wound has increased redness, your wound has increased drainage and your wound pain has increased Follow-up/Referrals: Sean Gutiérrez MD [Primary Care Provider] - Diet: Regular Addtl Provider Instructions: Please keep all appointments as scheduled. Feel free to contact our office with any questions, concerns or need to change appointment times at [phone]. We recommend you use a stool softener (colace) twice a day for the first two weeks to prevent straining/constipation. Please do not drink or drive while taking prescription pain medication. Okay to cleanse SP tube site with warm, soapy water and fresh washcloth. Prescriptions: New oxycodone 5 mg capsule 5 mg PO TID PRN (Reason: pain) Qty: 30 RF: 0 docusate sodium [Colace] 100 mg capsule 100 mg PO BID Qty: 60 RF: 0 Continue lisinopril-hydrochlorothiazide 20-12.5 mg tablet 1 tab PO QAM RF: 0 metformin 500 mg tablet 500 mg PO QPM RF: 0 omeprazole 20 mg tablet,delayed release (DR/EC) 20 mg PO DAILY RF: 0 Stand-Alone Forms: [place] [employer] [facility] [employer], Opioid Pain Management [facility]/Other Patient Handouts: Prostatectomy Radical Dc Discharge Orders: Discharge Order (Routine); Ordered 09/07/18 Ordered By: Mellisa Molina Admission Data Admit Date/Time: 09/06/18 13:31 Attending Provider: Aurelio Caban I. Admit Provider: Aurelio Caban I. Primary Care Provider: Sean Gutiérrez Service: Surgical Services Other Interventions: Discharge Summary Assessment (RN) Last Done: 09/07/18 16:04 DC Date/Time DO NOT enter until pt leaves facility: 09/07/18 16:48
== END 2018-09-07 16:48 | disposition home or self-care (01) | DRG 708 ==
LOC: ASU 05:20 → 3W 13:31